=== PATIENT | male | born 1965 | race Hispanic/Latino ===

== ENCOUNTER 2019-03-05 09:25 | Emergency (ER) | payer MEDICARE ==
[2019-03-05 09:41] VITALS: BMI 32.5
[2019-03-05 09:48] VITALS: RESP 18; TEMP 98.7
--- NOTE | 2019-03-05 10:09 | ED PDOC ---
Arrival/HPI - General Chief Complaint: Lower Extremity Problem/Injury Historian: Patient - History of Present Illness Narrative History of Present Illness (Text): 03/05/19 9:30 53 year old male whose past medical history includes, hypertension, prediabetes, and borderline hyperlipidemia, who presents to the ED complaining of right toe pain that started this morning. Patient reports that last night at approximately 21:00 he slipped and fell at a fast food restaurant. He felt well at the time and went home. This morning he woke up with right big toe pain when attempting to walk. He explains that the toe only hurts when he attempts to walk or move t he toe. Patient states that he walks on the lateral side of his right foot to avoid placing any weight on the toe. He denies any ankle or other lower extremity pain. Of note he hasn't taken any medication for the pain. Allergic to Penicillin. PMD: Time/Duration: 1 hour Symptom Onset: Gradual Symptom Course: Unchanged Activities at Onset: Light Context: Slipped (Last night) Past Medical History - Provider Review Nursing Documentation Reviewed: Yes Primary Care Provider: Rand Tafoya - Cardiac Hx Cardiac Disorders: Yes Hx Hypertension: Yes - Pulmonary Hx Respiratory Disorders: Yes Hx Sleep Apnea: Yes (no machine) - Neurological Hx Neurological Disorder: No - HEENT Hx HEENT Disorder: No - Renal Hx Renal Disorder: No Other/Comment: crystals in urine - Endocrine/Metabolic Hx Endocrine Disorders: Yes Hx Diabetes Mellitus Type 2: Yes - Hematological/Oncological Hx Blood Disorders: No - Integumentary Hx Dermatological Disorder: No - Musculoskeletal/Rheumatological Hx Musculoskeletal Disorders: Yes Hx Fractures: Yes (left arm 1974, left hand 1989, right hand 1999, right pinky toe) - Gastrointestinal Hx Gastrointestinal Disorders: No - Genitourinary/Gynecological Hx Genitourinary Disorders: No - Psychiatric Hx Psychophysiologic Disorder: Yes Hx Anxiety: Yes Hx Depression: Yes (no medications) Hx Substance Use: No - Surgical History Other/Comment: hiatial hernia 2000 NECK MASS BX - Anesthesia Hx Anesthesia: Yes Hx Anesthesia Reactions: No Hx Malignant Hyperthermia: No - Suicidal Assessment Feels Threatened In Home Enviroment: No Family/Social History - Physician Review Nursing Documentation Reviewed: Yes Family/Social History: No Known Family HX Smoking Status: Never Smoked Hx Alcohol Use: Yes Hx Substance Use: No Hx Substance Use Treatment: No Allergies/Home Meds Allergies/Adverse Reactions: Allergies Penicillins Allergy (Verified 03/05/19 09:40) RASH Home Medications: Home Meds Medication Instructions Recorded Confirmed Lisinopril [Zestril] 40 mg PO DAILY 03/05/19 03/05/19 Review of Systems - Review of Systems Respiratory: absent: SOB Cardiovascular: absent: Chest Pain, ARREOLA Musculoskeletal: Arthralgias (Right big toe pain). absent: Back Pain, Neck Pain Skin: Normal Neurological: absent: Headache, Dizziness Physical Exam Vital Signs Reviewed: Yes Vital Signs Temp Pulse Resp BP Pulse Ox 03/05/19 09:42 98.7 F 93 H 18 163/114 H 94 L Temperature: Afebrile Blood Pressure: Hypertensive Pulse: Regular Respiratory Rate: Normal Appearance: Positive for: Well-Appearing Mental Status: Positive for: Alert and Oriented X 3 - Systems Exam Head: Present: Atraumatic, Normocephalic Extroacular Muscles: Present: EOMI Conjunctiva: Present: Normal Lower Extremity: Present: NORMAL PULSES (Intact dorsalis pedis pulses, posterior tibial pulses intact), Other (pain with inversion of right foot; ecchymosis noted to dorsal surface of right great toe. Sensation intact and able to wiggle toes.) Neurological: Present: GCS=15, CN II-XII Intact, Speech Normal, Normal Sensory Function Skin: Present: Warm, Dry, Normal Color Psychiatric: Present: Alert, Oriented x 3, Normal Insight, Normal Concentration Medical Decision Making ED Course and Treatment: 03/05/19 09:30 Impression: 53 year old male who is complaining of right big toe pain that started this morning s/p mechanical fall last night. Plan: -- Motrin -- Right Foot X-ray -- Reassess and disposition Prior Visits: Notes and results from previous visits were reviewed. Progress Notes: - RAD Interpretation Narrative RAD Interpretations (Text): 03/05/19 11:13 PROCEDURE: Right Foot Radiographs. HISTORY: Fall COMPARISON: None. TECHNIQUE: 3 views obtained. FINDINGS: BONES: Normal. No fracture. JOINTS: Normal. SOFT TISSUES: Normal. OTHER FINDINGS: None. IMPRESSION: Normal right foot radiographs. Radiology Orders: 03/05/19 09:57 FOOT RIGHT 3 VIEWS ROUTINE [RAD] Stat - Medication Orders Current Medication Orders: Discontinued Medications Ibuprofen (Motrin Tab) 600 mg PO STAT STA Stop: 03/05/19 09:58 Last Admin: 03/05/19 10:08 Dose: 600 mg MAR Pain/Vitals Document 03/05/19 10:08 SOL (Rec: 03/05/19 10:08 SOL [id number]) Pain Reassessment Is This A Pain ReAssessment? No Sleep Is patient sleeping during reassessment? No Presence of Pain Presence of Pain Yes - Scribe Statement The provider has reviewed the documentation as recorded by the Scribe Cesar Carty Provider Scribe Attestation: All medical record entries made by the Scribe were at my direction and personally dictated by me. I have reviewed the chart and agree that the record accurately reflects my personal performance of the history, physical exam, medical decision making, and the department course for this patient. I have also personally directed, reviewed, and agree with the discharge instructions and disposition. Disposition/Present on Arrival - Present on Arrival Any Indicators Present on Arrival: No History of DVT/PE: No History of Uncontrolled Diabetes: No Urinary Catheter: No History of Decub. Ulcer: No History Surgical Site Infection Following: None - Disposition Have Diagnosis and Disposition been Completed?: Yes Diagnosis: Foot contusion, Sprain of foot Disposition Time: 11:05 Patient Plan: Discharge Patient Problems: Current Active Problems Problem Status Onset Foot contusion Acute Sprain of foot Acute Condition: STABLE Discharge Instructions (ExitCare): Contusion (DC) Print Language: FRISIAN Additional Instructions: All medical record entries made by the Scribe were at my direction and personally dictated by me. I have reviewed the chart and agree that the record accurately reflects my personal performance of the history, physical exam, medical decision making, and the department course for this patient. I have also personally directed, reviewed, and agree with the discharge instructions and disposition. Remember to apply ice to foot every hour and to elevate the foot on a pillow at night. Continue to walk as much as possible. Take the FLETCHER bandage wrap off the foot whe n you are ready to shower and rewrap foot prior to walking Take Naproxen TWICE a day as needed for pain If your foot swells, has worsened bruising or has continued pain, see the recreation therapist listed in your discharge paperwork Prescriptions: Naproxen 500 mg PO BID #10 tab Referrals: Lino Small DPM [Staff Provider] - Follow up with primary Forms: [employer] ([place]an)
--- NOTE | 2019-03-05 11:03 | RAD ---
Date of service: 03/05/2019 PROCEDURE: Right Foot Radiographs. HISTORY: fall COMPARISON: None. TECHNIQUE: 3 views obtained. FINDINGS: BONES: Normal. No fracture. JOINTS: Normal. SOFT TISSUES: Normal. OTHER FINDINGS: None. IMPRESSION: Normal right foot radiographs.
[2019-03-05 11:22] VITALS: BP 153/99; PULSE 73; O2SAT 99
== END 2019-03-05 11:30 | disposition home or self-care (01) ==
LOC: ED 09:25
DX: S93.601A Unspecified sprain of right foot, initial encounter (principal); W01.0XXA Fall on same level from slipping, tripping and stumbling without subsequent striking against object, initial encounter; Y92.511 Restaurant or cafe as the place of occurrence of the external cause; I10 Essential (primary) hypertension; E78.5 Hyperlipidemia, unspecified; E11.9 Type 2 diabetes mellitus without complications